=== PATIENT | female | born 1960 | race Caucasian/White ===

== ENCOUNTER → 2017-07-01 13:54 | Outpatient (CLI) | payer BC, SELFPAY ==
[2017-07-01 14:23] LABS: Basophils # 0.1 K/mm3 (0-0.2); Basophils % 1.1 % (0.1-2.0); Eosinophils # 0.4 K/mm3 (0.0-0.4); Eosinophils % 7.5 % (0.1-12.0); Hematocrit 38.7 % (37.0-47.0); Hemoglobin 12.9 g/dL (12.2-16.2); Lymphocytes # 2.1 K/mm3 (0.7-4.5); Lymphocytes % 40.8 K/mm3 (10-50); Mean Corpuscular HGB Conc 33.5 g/dL (31.8-35.4); Mean Corpuscular Hemoglobin 31.4 pg (27.0-31.2); Mean Corpuscular Volume 93.8 fl (81-99); Monocytes # 0.3 K/mm3 (0.1-1.0); Monocytes % 4.9 % (1.7-9.3); Neutrophils # 2.4 K/mm3 (1.8-7.8); Neutrophils % 45.6 % (37.0-80.0); Platelet Count 302 K/mm3 (142-424); Red Blood Count 4.13 M/mm3 (4.20-5.40); Red Cell Distribution Width 12.4 % (11.5-17.5); White Blood Count 5.2 K/mm3 (4.8-10.8)
[2017-07-01 16:41] LABS: Alanine Aminotransferase 19 U/L (12-78); Albumin Level 3.9 gm/dL (3.4-5.0); Albumin/Globulin Ratio 1.2 (1.1-1.8); Alkaline Phosphatase 99 U/L (46-116); Anion Gap 13.2 mEq/L (5-15); Aspartate Amino Transferase 20 U/L (15-37); Bilirubin,Total 0.2 mg/dL (0.2-1.0); Blood Urea Nitrogen 12 mg/dL (7-18); Calcium 9.8 mg/dL (8.5-10.1); Carbon Dioxide 29 mmol/L (21.0-32.0); Chloride 106 mmol/L (98-107); Chol/HDL Ratio 3.1 (1-3.5); Cholesterol 220 mg/dL (140-200); Creatinine,Serum 0.64 mg/dL (0.55-1.02); Estimated Glomerular Filt Rate 97 ml/min (>60); GFR (African American) 117 ML/MIN (>60); Globulin 3.2 gm/dl (1.3-3.2); Glucose 87 mg/dL (74-106); HDL Cholesterol 70 mg/dL (29-89); LDL Cholesterol 141 mg/dL (0-130); Potassium 4.2 mmoL/L (3.5-5.1); Sodium 144 mmol/L (136-145); T4 (Thyroxine) 9.3 ug/dl (4.7-13.3); Thyroid Stimulating Hormone 1.03 uIU/ml (0.358-3.740); Total Protein,Serum 7.1 gm/dL (6.4-8.2); Triglycerides 46 mg/dL (30-200); VLDL Cholesterol 9 mg/dL (0-40)
== END ==
PROVIDERS: Visit Provider Family Medicine
DX: F41.8 Other specified anxiety disorders (principal); L65.9 Nonscarring hair loss, unspecified
CPT/HCPCS: 36415; 80053; 80061; 84436; 84443; 85025

== ENCOUNTER → 2017-09-29 14:38 | Outpatient (CLI) | payer BC, SELFPAY ==
--- NOTE | 2017-09-29 | NVE_ITS ---
Venous Exam Indications: 729.5 Pain in limb. IMPRESSIONS 1. There is no evidence of significant Reflux. 2. Acute deep vein thrombosis involving the right posterior tib History: Right lower extremity pain. Risk factors: Current tobacco use. Patient has a history of DVT in LLE 2014. Right lower extremity venous duplex evaluation. Doppler flow study including spectral analysis, color and bliss scale imaging. Location: Vascular laboratory. Patient status: Outpatient. CRITICAL FINDINGS - Reported to: ANALI Sierra - Read back and verified. - 09/29/17 - 15:45 - DVT in PTV RLE Tables: Venous flow and imaging: + + + + Location Overall Flow properties + + + + Right common femoral Patent Normal phasicity; spontaneous; normal augmentation; compressible + + + + Right saphenofemoral Patent Compressible junction + + + + Right profunda femoral Patent Compressible + + + + Right femoral Patent Normal phasicity; spontaneous; normal augmentation; compressible + + + + Right greater saphenous Patent Normal phasicity; spontaneous; normal augmentation; compressible + + + + Right popliteal Patent Normal phasicity; spontaneous; normal augmentation; compressible + + + + Right posterior tibial Totally occluded Noncompressible + + + + Right peroneal Patent Compressible + + + + Right gastrocnemius Patent Compressible + + + + Right soleal Patent Compressible + + + + (Report amended ) Electronically signed by: German Cruz [id number]
== END ==
PROVIDERS: PCP Family Medicine; Visit Provider Family Medicine
DX: M79.661 Pain in right lower leg (principal)
CPT/HCPCS: 93971

== ENCOUNTER → 2019-03-19 16:30 | Outpatient (CLI) | payer BC, SELFPAY ==
[2019-03-19 17:40] LABS: Alanine Aminotransferase 25 U/L (12-78); Albumin Level 3.9 gm/dL (3.4-5.0); Albumin/Globulin Ratio 1.3 (1.1-1.8); Alkaline Phosphatase 82 U/L (46-116); Anion Gap 10.2 mEq/L (5-15); Aspartate Amino Transferase 19 U/L (15-37); Bilirubin,Total 0.3 mg/dL (0.2-1.0); Blood Urea Nitrogen 16 mg/dL (7-18); Calcium 9.2 mg/dL (8.5-10.1); Carbon Dioxide 30 mmol/L (21.0-32.0); Chloride 104 mmol/L (98-107); Chol/HDL Ratio 2.8 (1-3.5); Cholesterol 212 mg/dL (140-200); Estimated Glomerular Filt Rate 74 ml/min (>60); GFR (African American) 90 ML/MIN (>60); Glucose 88 mg/dL (74-106); HDL Cholesterol 75 mg/dL (29-89); LDL Cholesterol 127 mg/dL (0-130); Potassium 4.2 mmoL/L (3.5-5.1); Sodium 140 mmol/L (136-145); Thyroid Stimulating Hormone 1.12 uIU/ml (0.358-3.740); Total Protein,Serum 6.9 gm/dL (6.4-8.2); Triglycerides 51 mg/dL (30-200); VLDL Cholesterol 10 mg/dL (0-40)
== END ==
PROVIDERS: Visit Provider Family Medicine
DX: Z79.899 Other long term (current) drug therapy (principal); F41.8 Other specified anxiety disorders
CPT/HCPCS: 36415; 80053; 80061; 84443

== ENCOUNTER → 2020-06-10 12:19 | Outpatient (CLI) | payer BC, SELFPAY ==
[2020-06-10 13:05] LABS: Chloride 103 mmol/L (98-107); Potassium 3.9 mmoL/L (3.5-5.1); Sodium 137 mmol/L (136-145)
[2020-06-10 13:07] LABS: Alanine Aminotransferase 48 U/L (12-78); Aspartate Amino Transferase 45 U/L (14-36); Blood Urea Nitrogen 22 mg/dl (7-17); Estimated Glomerular Filt Rate 86 ml/min (>60); GFR (African American) 104 ML/MIN (>60)
[2020-06-10 13:08] LABS: Albumin Level 4.1 g/dl (3.5-5.0); Albumin/Globulin Ratio 1.6 (1.1-1.8); Alkaline Phosphatase 91 U/L (38-126); Anion Gap 12.9 mEq/L (5-15); Bilirubin,Total 0.3 mg/dl (0.2-1.3); Calcium 9.4 mg/dl (8.4-10.2); Carbon Dioxide 25 mmol/L (22.0-30.0); Cholesterol 203 mg/dl (140-200); Globulin 2.5 g/dL (1.3-3.2); Glucose 107 mg/dl (74-100); HDL Cholesterol 68 mg/dl (40-60); Total Protein,Serum 6.6 g/dl (6.3-8.2); Triglycerides 91 mg/dl (30-150); VLDL Cholesterol 18 mg/dL (0-40)
[2020-06-10 13:39] LABS: Thyroid Stimulating Hormone 1.72 uIU/mL (0.465-4.68)
[2020-06-10 14:17] LABS: Coronavirus 19 IgG Antibody Positive (Negative); Coronavirus 19 IgM Antibody Negative (Negative)
== END ==
PROVIDERS: Family Medicine; Visit Provider Internal Medicine Gastroenterology
DX: Z01.812 Encounter for preprocedural laboratory examination (principal); Z20.822 Contact with and (suspected) exposure to COVID-19; Z12.11 Encounter for screening for malignant neoplasm of colon; F41.8 Other specified anxiety disorders; R63.5 Abnormal weight gain
CPT/HCPCS: 36415; 80053; 80061; 84443; 86328

== ENCOUNTER 2020-06-12 10:27 | Day surgery (SDC) | payer BC, SELFPAY ==
[2020-06-07 13:03] VITALS: BMI 29.1
[2020-06-12] VITALS (8 sets, daily range): BP systolic 108–131; BP diastolic 68–83; PULSE 59–80; RESP 12–20; TEMP 36.3–36.6; O2SAT 94–100
--- NOTE | 2020-06-12 12:35 | HMH.ANESCL ---
[facility] Anesthesia Checklist - Patient Identification Patient Identification: Arm Band - Structural Data Admitted From: Home Planned Operative Procedure/s: Colonoscopy Consent for Planned Operative Procedure(s) Verified: Yes - NPO Status Verified Time NPO: 00:00 - Airway Assessment Dentition: Good Dentition - Neurological Assessment Level of Consciousness: Awake, Alert Hx Seizures: No Numbness or tingling in extremities: No - Anesthesia Plan Anesthesia Risk discussed: Yes Anesthesia Plan: Verified ASA Class: I Anesthesia Type: MAC [facility] History I have reviewed the patient's past medical history: Yes Medical History: Reports:: Anxiety, Cancer (skin) Denies:: Diabetes Mellitus Type 1, Diabetes Mellitus Type 2, Internal Pacemaker, MRSA, Seizures *Have you ever received a pneumonia vaccine?: No *Have you received a flu vaccine this season?: Yes Anesthesia experience/problems:: None Other Surgeries: Yes: Colonoscopy. No: Pacemaker Amputation: No - *Social History Last grade of school completed: High school graduate Smoking Status: Former smoker Tobacco Type: cigarettes Smoking End Date: 02/2019 Alcohol Intake: current Alcohol Intake Frequency:: a few times a month Substance Use Type: denies use *Occupational Status:: employed Housing: house Household Members: spouse *Travel in the last 8 weeks: None Family Hx:: No significant family history
--- NOTE | 2020-06-12 12:57 | HMH.PROC ---
[facility] Procedure Note Procedure Note:: Colonoscopy Procedure Report: Colonoscopy Endoscopist: Ruperto Hart II, MD Referring physician: Geronimo Lange M.D./Keegan Greenberg MD Date of Procedure: June 12, 2020 Equipment: Olympus 190 variable stiffness pediatric colonoscope Sedation: MAC sedation Indication: Mrs. Norman is a 59-year-old female who is here for screening/surveillance colonoscopy. The patient did have a colonoscopy in May 2014 and had significant tortuosity and mild sigmoid diverticulosis. She did not have adenomatous polyps. She does have some chronic constipation. She reports no rectal bleeding, abdominal pain, weight loss or change in bowel habits. She reports no family history of colon cancer. Procedure: Prior to the procedure, a history and physical exam was performed, and patient's medications and allergies were reviewed. The risks, benefits and alternatives of the sedation and procedure were discussed with the patient. All questions were answered and informed consent was obtained. The patient was brought to the procedure room. Patient identification and proposed procedure were verified by the physician and the nurse. The patient was placed in a left lateral decubitus position and the scope was passed under direct vision. Throughout the procedure, the patient's blood pressure, pulse, and oxygen saturations were monitored continuously. The colonoscopy was accomplished without difficulty. The patient tolerated the procedure well. Findings: On digital rectal examination there was normal rectal tone. There were no external hemorrhoids. The colonoscope was introduced through the anal canal to the rectum and advanced to the cecum. The ileocecal valve and appendiceal orifice were identified. The scope was advanced a short distance into the ileum which appeared grossly normal. The scope was then withdrawn into the colon. The cecum, ascending and transverse colon and mucosa were grossly normal. There were scattered diverticuli throughout the descending and sigmoid colon (LEFT colon). The rectum itself was normal. Upon retroflexion within the rectum there were grade 1 internal hemorrhoids. The preparation was excellent throughout with [place] Preparation Score of 9. The cecal time was 12 minutes. Impression: 1. Left-sided diverticulosis 2. Grade 1 internal hemorrhoids Plan: The patient will not require screening/surveillance colonoscopy again for 10 years by ACS guidelines. I would encourage a fiber bowel regimen on a long-term daily maintenance basis.
--- NOTE | 2020-06-12 13:01 | P.PN_ITS ---
[facility] Anesthesia Record Part I Intake, IV Amount: 600 Estimated blood loss (mL): 0 Urine output (mL): 0 Blood Pressure: 110/68 SaO2: 94 Pulse Rate: 79 Respiratory Rate: 12 Temperature: 97.3 F Patient is:: Drowsy Stable to PACU at:: 12:59
--- NOTE | 2020-06-12 14:47 | HMH.ANESII ---
[facility] Anesthesia Record Part II Discharge Time: 13:53 Destination: Surgical Day Care (OP Surgery) PACU nurse assessment reviewed?: Yes Patient Condition:: Good Anesthesia Complications:: None Swallowing reflex intact?: Yes Cyanosis?: No Blood Pressure: 131/83 Pulse Rate: 59 Temperature: 97.3 F Mental Status: Alert & Oriented Pain level:: 0 Nausea and/or vomitting:: None Intake, IV Amount: 600
== END 2020-06-12 13:55 | disposition home or self-care (01) ==
LOC: OUTP 10:30
PROVIDERS: PCP Family Medicine; Visit Provider Internal Medicine Gastroenterology
PROC: 0DJD8ZZ Inspection of Lower Intestinal Tract, Via Natural or Artificial Opening Endoscopic (ICD-10-PCS; CPT 45378; principal; 2020-06-12 11:30)
DX: Z12.11 Encounter for screening for malignant neoplasm of colon (principal); Z87.19 Personal history of other diseases of the digestive system; K57.30 Diverticulosis of large intestine without perforation or abscess without bleeding; K64.0 First degree hemorrhoids; F41.9 Anxiety disorder, unspecified; Z85.828 Personal history of other malignant neoplasm of skin; Z87.891 Personal history of nicotine dependence; Z79.899 Other long term (current) drug therapy
CPT/HCPCS: 45378

== ENCOUNTER → 2020-08-21 09:27 | Outpatient (CLI) | payer BC, SELFPAY ==
--- NOTE | 2020-08-21 | CA_ITS ---
APPROVED REPORT EXAM: Comprehensive 2D, Doppler, and color-flow Echocardiogram Show Host: Luci Chavez, EULA, RVS Ht: 5 ft 5 in Wt: 175lbs BSA: 1.87 BP: 131/83 mmHg Indications: Chest Pressure, Shortness of Breath, Palpitations 2D Dimensions IVSd 0.92 cm LVEF (Visual) 53.20 % PWd 0.95 cm LVDd 4.75 cm LVDs 3.45 cm Left Atrium 3.43 cm LVOT 1.86 cm (M/F) 1.5-2.5 M-Mode Dimensions LA Diam 3.63 cm (1.9-4.0) Ao Diam 3.03 cm (2.0-3.7) EPSs 0.37 cm TAPSE 1.58 (<1.7) LV Diastology E Decel Time 210.00 (160-240 msec) E/A Ratio 1.22 MED E' 11.30 (< 7 cm/sec) MED A' 9.10 cm/s E'/MED E' Ratio 6.09 (>14) LAT E' 9.60 (<10 cm/sec) LAT A' 7.60 cm/s E/LAT E' Ratio 7.17 (>14) Aortic Valve LVOT Max 105.00 (70-110 cm/s) LVOT VTI 22.22 cm AoV Peak Vlad. 138.00 (50-130 cm/s) AO Peak GR. 7.70 mmHg AO Mean GR. 3.90 (<5 mmHg) AO VTI 27.68 (18-25 cm) ARLINE (VTI) 2.18 (2.5-4.5 cm2) Mitral Valve MV A Velocity 56.00 (40-130 cm/s) E/A Ratio 1.22 MV Decel. Time 210.00 (160-240 ms) Pulmonary Valve PV Peak Velocity 84.00 (50-150 cm/s) Tricuspid Valve TR P. Velocity 174.00 cm/s RAP Estimate 10.00 mmHg RVSP 22.20 mmHg Left Ventricle Left atrium is normal size, left ventricle is normal size, there is mild concentric left ventricular hypertrophy, visually estimated ejection fraction 55% with no regional wall motion abnormality, diastolic parameters are within normal range. Right Ventricle Right atrium and right ventricle are normal size and contractility. Aortic Valve Aortic valve is minimally thickened and fibrosed, there is no aortic stenosis or aortic insufficiency. Mitral Valve Mitral valve is grossly normal, there is trace mitral regurgitation. Tricuspid Valve Tricuspid valve is grossly normal, there is trace tricuspid regurgitation, tricuspid regurgitation jet velocity is inadequate for calculation of the right ventricular systolic pressure. Pulmonic Valve Pulmonic valve is poorly visualized. Great Vessels Aortic root is normal size. Pericardium No significant pericardial effusion noted. Conclusion 1. Normal left ventricular size, preserved left ventricular systolic function, visually estimated ejection fraction 55% with no regional wall motion abnormality, diastolic parameters are within normal range. 2. Trace mitral and tricuspid regurgitation. 3. No significant pericardial effusion noted. Electronically signed by : Tramaine Alberts, 08/21/2020 12:43:31
--- NOTE | 2020-08-21 10:18 | XR_ITS ---
PROCEDURE: XR CHEST 2V CLINICAL HISTORY: PALPITATIONS Shortness of air COMPARISON: No exams were available for comparison FINDINGS: The cardiomediastinal silhouette and pulmonary vascularity are within normal limits. Calcified granuloma is present in the right upper lobe. Minimal fibronodular changes right apex. No lobar consolidation or collapse. There is an old right 8th and 9th rib fracture. IMPRESSION: No acute findings. Dictated by: German Cruz MD 08/21/2020 12:32 German Cruz MD in OV 08/21/2020 12:32
== END ==
PROVIDERS: PCP Family Medicine; Visit Provider Family Medicine
DX: R00.2 Palpitations (principal)
CPT/HCPCS: 71046; 93225; 93226; 93306

== ENCOUNTER → 2021-08-30 16:04 | Outpatient (CLI) | payer BC, SELFPAY ==
--- NOTE | 2021-08-30 | XR_ITS ---
PROCEDURE INFORMATION: Exam: XR Chest Exam date and time: 08/30/2021 4:19 PM Age: 60 years old Clinical indication: Pain; Angina and cough and shortness of breath; Other: Chest wall when coughing; Patient HX: SOA, tightness, cough w cp x 10 days; Additional info: Smoker, shielded TECHNIQUE: Imaging protocol: Radiologic exam of the chest. Views: 1 view. COMPARISON: CR XR CHEST 2V 08/21/2020 10:28 AM FINDINGS: Lungs: No focal pneumonia or pneumothorax. Granulomatous density noted within the right upper lobe. Bilateral hyperinflation is present. Pleural spaces: There are no pleural effusions present. Heart/Mediastinum: Unremarkable. No cardiomegaly. Bones/joints: Unremarkable. IMPRESSION: 1. No focal pneumonia or pneumothorax. 2. Bilateral hyperinflation is present.
== END ==
PROVIDERS: PCP Family Medicine; Visit Provider Physician Assistant
DX: Z20.822 Contact with and (suspected) exposure to COVID-19 (principal)
CPT/HCPCS: 71045; C9803; U0003; U0005

== ENCOUNTER → 2021-09-17 14:54 | Outpatient (CLI) | payer BC, SELFPAY ==
[2021-09-17 15:40] VITALS: PULSE 70
[2021-09-17 15:45] VITALS: PULSE 68
== END ==
PROVIDERS: PCP Family Medicine; Visit Provider Physician Assistant
DX: R05.9 Cough, unspecified (principal)
CPT/HCPCS: 94060; 94640; 94727; 94729

== ENCOUNTER → 2022-03-11 09:06 | Outpatient (CLI) | payer BC, SELFPAY ==
[2022-03-11 10:02] LABS: Chloride 103 mmol/L (98-107); Potassium 4.8 mmoL/L (3.5-5.1); Sodium 139 mmol/L (136-145)
[2022-03-11 10:04] LABS: Blood Urea Nitrogen 18 mg/dl (7-17); Estimated Glomerular Filt Rate 86 ml/min (>60); GFR (African American) 104 ML/MIN (>60)
[2022-03-11 10:05] LABS: Alanine Aminotransferase 26 U/L (12-78); Albumin Level 4.3 g/dl (3.5-5.0); Albumin/Globulin Ratio 1.6 (1.1-1.8); Alkaline Phosphatase 86 U/L (38-126); Anion Gap 10.8 mEq/L (5-15); Aspartate Amino Transferase 29 U/L (14-36); Bilirubin,Total 0.3 mg/dl (0.2-1.3); Calcium 9.3 mg/dl (8.4-10.2); Carbon Dioxide 30 mmol/L (22.0-30.0); Cholesterol 230 mg/dl (140-200); Globulin 2.7 g/dL (1.3-3.2); Glucose 95 mg/dl (74-100); Triglycerides 68 mg/dl (30-150); VLDL Cholesterol 14 mg/dL (0-40)
[2022-03-11 10:06] LABS: Chol/HDL Ratio 3.1 (1-3.5); HDL Cholesterol 74 mg/dl (40-60)
== END ==
PROVIDERS: PCP Family Medicine; Visit Provider Family Medicine
DX: E78.5 Hyperlipidemia, unspecified (principal); F41.8 Other specified anxiety disorders; K21.9 Gastro-esophageal reflux disease without esophagitis
CPT/HCPCS: 36415; 80053; 80061

== ENCOUNTER → 2022-10-07 11:33 | Outpatient (CLI) | payer BC, SELFPAY ==
[2022-10-07 11:48] LABS: Adenovirus,PCR Not Detected (NotDetected); Bordetella Pertussis Not Detected (NotDetected); Chlamydophila Pneumoniae, PCR Not Detected (NotDetected); Coronavirus 19, PCR Not Detected (NotDetected); Coronavirus 229E Not Detected (NotDetected); Coronavirus NL63 Not Detected (NotDetected); Coronavirus OC43 Not Detected (NotDetected); Coronovirus HKU1,PCR Not Detected (NotDetected); Human Metapneumovirus Not Detected (NotDetected); Influenza A, PCR Not Detected (NotDetected); Influenza AH1, 2009 Not Detected (NotDetected); Influenza AH1, PCR Not Detected (NotDetected); Influenza AH3,PCR Not Detected (NotDetected); Influenza B, PCR Not Detected (NotDetected); Mycoplasma Pneumoniae, PCR Not Detected (NotDetected); Parainfluenza 1, PCR Not Detected (NotDetected); Parainfluenza 2, PCR Not Detected (NotDetected); Parainfluenza 3, PCR Not Detected (NotDetected); Respiratory Syncytial Virus Not Detected (NotDetected); Rhinovirus/Enterovirus Not Detected (NotDetected)
[2022-10-07 13:54] LABS: Parainfluenza 4, PCR Detected (NotDetected)
== END ==
PROVIDERS: PCP Family Medicine; Visit Provider Nurse Practitioner Family
DX: J09.X2 Influenza due to identified novel influenza A virus with other respiratory manifestations (principal); J20.4 Acute bronchitis due to parainfluenza virus
CPT/HCPCS: 87581; 87632; 87798

== ENCOUNTER 2023-12-15 07:18 | Outpatient (CLI) | payer BC, SELFPAY ==
--- NOTE | 2023-12-15 07:23 | US_ITS ---
PROCEDURE INFORMATION: Exam: US Abdomen, Limited; Right Upper Quadrant Exam date and time: 12/15/2023 7:20 AM Age: 63 years old Clinical indication: Abdominal pain; Acute; Additional info: Ruq pain TECHNIQUE: Imaging protocol: Real time ultrasound of the abdomen with image documentation. Limited exam focused on the right upper quadrant. COMPARISON: No relevant prior studies available. FINDINGS: Liver: Normal. No masses. Gallbladder: Gallstones in the gallbladder. Gallbladder wall 3.7 -6.2 mm. Findings may reflect acute cholecystitis. Biliary ducts: Common bile duct 3.7 -4.1 mm Pancreas: Visualized pancreas is unremarkable. Right kidney: Right kidney 11.2 cm. Right renal cortex 5.5 mm. No hydronephrosis Portal venous: Hepatopetal flow in the portal vein IMPRESSION: Gallstones in the gallbladder. Gallbladder wall 3.7 -6.2 mm. Findings may reflect acute cholecystitis.
== END 2023-12-15 23:59 | disposition home or self-care (01) ==
LOC: RAD 07:18
PROVIDERS: PCP Family Medicine; Visit Provider Family Medicine
DX: R10.11 Right upper quadrant pain (principal)
CPT/HCPCS: 76705

== ENCOUNTER 2024-09-23 08:40 | Outpatient (CLI) | payer BC, SELFPAY ==
--- OUTSIDE RECORDS SUMMARY | 2020-09-25 12:01 | XMS_ITS | Encounter Summary ---
Author Organization [facility] Address [address] [place] [address] Care Team Providers Care Payroll Services Analyst Name Role Phone Silvino Greenberg MD Primary Care Provider Reason for Visit * Diagnostic Imaging (Emergency) - Closed Specialty Diagnoses / Procedures Referred By Contact Referred To Contact Obstetrics and Gynecology Diagnoses Osteoporosis screening Procedures DEXA Bone Density Axial Donna Monroe MD [address] [facility] [address] [place] [address] Phone: tel: fax: [facility] [address] [place] [address] Phone: tel: fax: Referral ID Status Reason Start Date Expiration Date Visits Re quested Visits Authorized [id number] Closed 09/25/2020 09/25/2021 1 1 Encounter Details Date Type Department Care Team (Late st Contact Info) Description 09/25/2020 12:01 PM EDT Hospital Encounter [facility] [address] [place] [address] Social History Tobacco Use Types Packs/Day Years Used Date Smoking Tobacco: Former Cigarettes 1 30 Electronic Cigarette Smokeless Tobacco: Never Alcohol Use Standard Drinks/Week Comments Yes 0 (1 standard drink = 0.6 oz pur e alcohol) social Abuse Screen Answer Date Recorded Feels Unsafe at Home or Work/School no 11/30/2023 Feels Threatened by Someone no 10/0 07/2023 Does Anyone Try to Keep You From Having Contact with Others or Doing Things Outside Your Home? no 11/30/2023 Physical Signs of Abuse Present no 11/30/2023 Comments No Sex and Gender Information Value Date Recorded Sex Assigned at Not on file Legal Sex Female 12:14 PM EDT Gender Identity Not on file Sexual Orientation Not on file documented as of this encounter Plan of Treatment Not on file documented as of this encounter Procedures Procedure Name Priority Date/Time Associated Diagnosis Comments DEXA BONE DENSITY AXIAL STAT 09/25/2020 12:14 PM EDT Osteoporosis screening documented in this encounter Results * DEXA Bone Density Axial (09/25/2020 12:14 PM EDT) Anatomical Region Laterality Modality Wrist, Hip, L-spine N/A Bone Density Narrative 09/25/2020 5:44 PM EDT Bone Density Scan Findings Consistent with Osteoporosis Would recommend Calcium , Vitamin D, Weight Bearing Exercises and Medical Therapy Follow Up Repeat Study in 2 Years Donna Monroe MD us Donna Monroe MD IMG DXA ORDERABLES Final Result documented in this encounter Visit Diagnoses Not on filedocumented in this encounter Care Teams Payroll Services Analyst Relationship Specialty Start Date End Date Silvino Greenberg MD [facility] [address] [facility] [address] [place] [address] PCP - General Family Medicine 09/25/20 documented as of this encounter
--- OUTSIDE RECORDS SUMMARY | 2023-05-06 12:05 | XMS_ITS ---
Author Organization [facility] Address [address] [id number] Care Team Providers Care Chiller Hand Name Role Phone Erich Greenberg Primary Care Provider Allergies Allergen (clinical drug ingredient) Drug/Non Drug Allergy documented on EMR Reaction Allergy Type Onset Date Status vortioxetine Trintellix nightmares Drug Allergy Ac tive Results Component Value Reference Range Notes Influenza Screen (in house) Reviewed date:05/07/2023 10:08:52 AM Interpretation:neg Performing Lab: Notes/Report: neg results neg CBC Fingerstick (in house) Reviewed date:05/07/2023 10:09:01 AM Interpretation: Performing Lab: Notes/Report: wbc 4.0 3.5 - 10 lym 34.3 15 - 50 mid 6.9 2 - 15 gran 58.8 35 - 80 rbc 4.18 3.5 - 5.5 hgb 13.0 11.5 - 16.5 hct 37.8 35 - 55 mcv 90.4 75 - 100 mch 31.1 25 - 35 mchc 34.4 31 - 38 plat 148 100 - 400 Covid test (in house) Reviewed date:05/07/2023 10:09:11 AM Interpretation:pos Performing Lab: Notes/Report: pos Result: pos REASON FOR VISIT vomitting, sore throat, headache, congestion, sob Medications Medication SIG (Take, Route, Frequency, Duration) Notes Start Date End Date Status Albuterol Sulfate HFA 108 (9 0 Base) MCG/ACT 2 inhalations Inhalation four times daily and q2h prn; Duration: 30 days 10/07/2022 Active traZODone HCl 150 MG 1 tab(s) orally onc e a day (at bedtime) Active methylPREDNISolone 4 MG as directed Orally 024 Active ZyrTEC Allergy 10 MG 1 tab(s) orally onc e a day Active Omeprazole 20 MG 1 cap(s) orally once a day Active Vital Signs Blood pressure systolic 120 mm Hg 05/06/19 24 Blood pressure diastolic 80 mm Hg 024 Heart Rate 80 /min 05/06/2023 Height 66 in 05/06/2023 Weight 177.8 lbs 05/06/2023 BMI 28.69 kg/m2 05/06/2023 Encounters Encounter Location Date Provider Diagnosis [facility] [address] [place] [address] [address] [place], [place] [id number] 05/06/2023 Erich Greenberg COVID-19 U07.1 Assessments Encounter Date Diagnosis (ICD Code) Assessment Notes Treatment Notes Treatment Clinical Notes Section Notes 05/06/2023 COVID-19 (ICD-10 - U07.1) Plan Of Treatment Medication Medication Name Sig Start Date Stop Date Notes methylPREDNISolone 4 MG as directed Orally 05/06/2023 Next Appt Details Follow Up: prn, Reason: Provider Name:Erich Bashir, 09/23/2024 03:30:00 PM, [facility] [address], [address], [place], [place], [id number], Progress Notes * Elena MENJIVARDOB:1960 ( 63 yo F)Acc No.[id number]:05/06/2023 Progress Notes Patient: Elena VIEIRA Provider: Erich Greenberg M.D. :1960 A ge:62 Y S ex:Female Date:05/06/2023 Address:[address] [place] [address], , [place]-[id number] Subjective: * Chief Complaints: * 1 . Vomitting, sore throat, headache, congestion, sob. * HPI: E NT/respiratory: The pt states she started on Friday with vomiting which resolved within 24 hours. On Friday she developed a sore throat, some productive cough and head ache. Pt denies any fever. Today she is actually feeling a little better. * ROS: A LLERGY: no C ough. n o R unny nose. D ERMATOLOGY: no R sierra. n o H gordon. U ROLOGY: no D ifficulty urinating. n o B lood in urine. 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 * Surgical History: t ubal ligation 1980, appendectomy 1980, C-scope/ [place]/ polyps 2014. * Hospitalization/Major Diagno stic Procedure: s ee above , [facility] ER-vomiting 09/04, [facility]- outpatient 5 days a week 12/11 to 01/20/18. * Family History: F ather: 65 yrs, alcohol abuse, coronary artery disease. M other: 63 yrs, renal failure, breast cancer and stroke. 2 brother(s) , 1 sister(s) . 2 daughter(s) . . Sister with skin cancer. Brother with pacemaker. 2 brothers and 1 sister with HBP. * Social History: C URRENT TOBACCO USE S moking Status: Patient does NOT smoke. C affeine: yes, frequency:coffee, pop and tea, qd. Home smoke detector use: yes. Marital Status: Single. Occupation: [employer]. Past smoking status: no. Alcohol: Yes, Type: , Frequency: ,Years: , Determination:, rare. Sexually active: yes. * Medications: T aking Albuterol Sulfate HFA 108 (90 Base) MCG/ACT Aerosol Solution 2 inhalations Inhalation four times daily and q2h prn , Taking traZODone HCl 150 MG Tablet 1 tab(s) orally once a day (at bedtime) , Taking Omeprazole 20 MG Capsule Delayed Release 1 cap(s) orally once a day , Taking ZyrTEC Allergy 10 MG Tablet 1 tab(s) orally once a day , Discontinued Zithromax Z-Frankie 250 MG Tablet 2 pills first day then one daily for 4 days orally as directed , Discontinued dexAMETHasone 4 MG Tablet 1 tablet Orally every 12 hrs , Discontinued Benzonatate 200 MG Capsule 1 capsule Orally Three times a day prn , Discontinued Promethazine-DM 6.25-15 MG/5ML Syrup 5 ml as needed Orally every 6 hrs , Discontinued Albuterol Sulfate HFA 108 (90 Base) MCG/ACT Aerosol Solution 1-2 puff(s) inhaled every 6 hours, prn , Discontinued Ciprofloxacin HCl 500 MG Tablet 1 tab(s) orally every 12 hours , Medication List reviewed and reconciled with the patient * Allergies: T rintellix: nightmares - Side Effects. Objective: * Vitals: W t:177.8, Temp:98.7, BP:120/80, HR:80, Nurse:VICK, Ht: 66, BMI:28.69. * Examination: E NT/Respiratory: General Appearance: N AD. E yes: P ERRLA, sclera clear. E ars: a uditory canals normal bilaterally, TM's WNL. N ose : M oderate congestion. O ral cavity : mild erythema of throat. N aurora : n o cervical lymphadenopathy. Heart : R RR, normal S1 S2, no murmurs. L ungs: c lear to auscultation bilaterally. Assessment: * Assessment: 1. [facility]-19 - U07.1 (Primary) Plan: * Treatment: Value Reference Range r esults neg * Libertad Mar 05/06/2023 4: 39:44 PM > , Provider reviewed results while patient in office. ?LAB: CBC Fingerstick (in house) (Collection Date & Time - 05/06/2023)* Value Reference Range w bc 4.0 3.5 - 10 * l ym 34.3 15 - 50 * m id 6.9 2 - 15 * g ran 58.8 35 - 80 * r bc 4.18 3.5 - 5.5 * h gb 13.0 11.5 - 16.5 * h ct 37.8 35 - 55 * m cv 90.4 75 - 100 * m ch 31.1 25 - 35 * m chc 34.4 31 - 38 * p lat 148 100 - 400 * Libertad Mar 05/06/2023 4: 17:14 PM > , Provider reviewed results while patient in office. ?LAB: Covid test (in house) (Collection Date & Time - 05/06/2023)?pos* Value Reference Range R esult: pos * Libertad Mar 05/06/2023 4: 40:05 PM > , Provider reviewed results while patient in office. * Procedure Codes: 3 6416 CAPILLARY BLOOD DRAW, 06643 CBC WITH AUTO DIFF, 22008 Flu Test- Nasal Swab, Modifiers: QW , 55304 COVID TEST IN HOUSE, Modifiers: QW * Follow Up: p rn * Images: Billing Information: * Visit Code: 08776 Office Visit, Est Pt., Level 3. * Procedure Codes: 11668 CAPILLARY BLOOD DRAW. 04731 CBC WITH AUTO DIFF. 57336 Flu Test- Nasal Swab. Modifiers: QW 72273 COVID TEST IN HOUSE. Modifiers: QW * Electronic signature of Erich Greenberg MD on 09/23/2024 at 08:42 AM EDT Sign off status: Pending * Provider: Erich Greenberg M.D. Date: 0 05/06/2023 Generated for Harrieti ng/Fajujug/eTransmitting on: 0 09/23/2024 08:42 AM EDT History and Physical Notes * HPI (History of Present Illness) Category Sub-Category Detail Notes Category Not es ENT/respiratory Today she is actually feeling a little better. Examination Category Sub-Category Detail Notes Category Not es ENT/Respiratory Oral cavity : mild erythema of throat Ears: auditory canals norm al bilaterally, TM's WNL Neck : no cervical lymphade nopathy Heart : RRR, normal S1 S2, n o murmurs Lungs: clear to auscultatio n bilaterally General Appearance: NAD Nose : Moderate congestion Eyes: PERRLA, sclera clear
--- OUTSIDE RECORDS SUMMARY | 2023-12-09 11:30 | XMS_ITS ---
Author Organization [facility] Address [address] [id number] Care Team Providers Care Drywall Applicator Name Role Phone Erich Greenberg Primary Care Provider Allergies Allergen (clinical drug ingredient) Drug/Non Drug Allergy documented on EMR Reaction Allergy Type Onset Date Status vortioxetine Trintellix nightmares Drug Allergy Ac tive Results Component Value Reference Range Notes Ultrasound : Right [place] drant Reviewed date:12/16/2023 09:10:13 AM Interpretation:call report- gallstones and gallbladder wall thickening Performing Lab: Notes/Report: call report- gallstones and gallbladder wall thickening REASON FOR VISIT ER visit; severe stomach pains Medications Medication SIG (Take, Route, Frequency, Duration) Notes Start Date End Date Status EQ Allergy Relief (Cetirizine) 10 MG Take 1 tablet by mouth once daily; Duration: 90 Active Albuterol Sulfate HFA 108 (90 Base) MCG/ACT 2 inhalations Inhalation four times daily and q2h prn; Duration: 30 days 10/07/2022 Active Omeprazole 20 MG 1 cap(s) orally once a day; Duration: 90 days Active traZODone HCl 150 MG TAKE 1 TABLET BY MO UT ONCE DAILY AT BEDTIME; Duration: 90 Active Zepbound 7.5 MG/0.5ML 0.5 mL Subcutaneou s; Duration: 30 day(s) Active Vital Signs Blood pressure systolic 112 mm Hg 12/09/19 24 Blood pressure diastolic 72 mm Hg 024 Heart Rate 73 /min 12/09/2023 Height 66 in 12/09/2023 Weight 161 lbs 12/09/2023 BMI 25.98 kg/m2 12/09/2023 Encounters Encounter Location Date Provider Diagnosis [facility] [facility] [address] [facility] [address] [place] [id number] 12/09/2023 Erich Greenberg RUQ abdominal pain R10.11 Assessments Encounter Date Diagnosis (ICD Code) Assessment Notes Treatment Notes Treatment Clinical Notes Section Notes 12/09/2023 RUQ abdominal pain (ICD-10 - R10.11) Plan Of Treatment Next Appt Details Follow Up: via phone to repo rt test results, Reason: Provider Name:Erich Bashir, 09/23/2024 03:30:00 PM, [facility]0 [facility] [address] [facility], [address], [place], [id number], Progress Notes * Elena MENJIVARDOB:1960 ( 63 yo F)Acc No.[id number]:12/09/2023 Progress Notes Patient: Elena VIEIRA Provider: Erich Greenberg M.D. :1960 A ge:63 Y S ex:Female Date:12/09/2023 Address:[address] [place] [address], [id number] Subjective: * Chief Complaints: * 1 . ER visit; severe stomach pains. * HPI: Alisia astroenterology: She presents today for follow-up on ER visit for epigastric abdominal pain. She presented to the emergency room on 11/30/2023 with sudden onset of sharp stabbing epigastric pain that she rated a 10/ 10. No associated symptoms of nausea, vomiting, diarrhea, or fever. Her pain actually subsided and route to the ER and workup in the ER including blood work and CT scan was noncontributory except for findings of a mildly contracted gallbladder. Of note she has been on Zepbound since September and was concerned she may be having a side effect however she has taken 2 additional doses of Zepbound since her episode of pain with no recurrence. * ROS: A LLERGY: no C ough. n o R unny nose. D ERMATOLOGY: no R sierra. n o H gordon. U ROLOGY: no D ifficulty urinating. n o B lood in urine. * Medical History: O P, Depression with anxiety, Recurrent DVT 2014, 2017, Sees Dr. Monroe for PRES[employer] care. * Surgical History: t ubal ligation 1980, appendectomy 1980, C-scope/ Nazario/ polyps 2014. * Hospitalization/Major Diagno stic Procedure: s ee above , [facility] ER-vomiting 09/04, [facility]- outpatient 5 days a week 12/11 to 01/20/18, [facility] ER - Abdominal Pain 11/30/2023. * Family History: F ather: 65 yrs, [...] detector use: yes. Marital Status: Single. 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 Past smoking status: no. Alcohol: Yes, Type: , Frequency: ,Years: , Determination:, rare. Sexually active: yes. * Medications: T aking Zepbound 7.5 MG/0.5ML Solution Auto-injector 0.5 mL Subcutaneous , Taking Albuterol Sulfate HFA 108 (90 Base) MCG/ACT Aerosol Solution 2 inhalations Inhalation four times daily and q2h prn , Taking EQ Allergy Relief (Cetirizine) 10 MG Tablet Take 1 tablet by mouth once daily , Taking Omeprazole 20 MG Capsule Delayed Release 1 cap(s) orally once a day , Taking traZODone HCl 150 MG Tablet TAKE 1 TABLET BY MOUTH ONCE DAILY AT BEDTIME , Discontinued methylPREDNISolone 4 MG Tablet Therapy Pack as directed Orally , Medication List reviewed and reconciled with the patient * Allergies: T rintellix: nightmares - Side Effects. Objective: * Vitals: W t:161, Temp:98.4, BP:112/72, HR:73, Nurse:QUEENIE, Ht: 66, BMI:25.98. * Examination: G eneral Examination: General Appearance: N AD. H EENT: u nremarkable.?Oral cavity: n o lesions, mucosa moist and WNL, no erythema. N aurora: s upple, no lymphadenopathy. C hest: n ormal shape and expansion. H eart: R SR. L ungs: c lear to auscultation. A bdomen: soft, nontender, bowel sounds present, no organomegaly or masses. E xtremities: n o leg edema. Assessment: * Assessment: 1. R UQ abdominal pain - R10.11 (Primary) Plan: * Treatment: * Follow Up: v ia phone to report test results * Images: Billing Information: * Visit Code: 92796 Office Visit, Est Pt., Level 3. * Procedure Codes: * Electronic signature of Erich Greenberg MD on 09/23/2024 at 08:43 AM EDT Sign off status: Pending * Provider: Erich Greenberg M.D. Date: Generated for Song falcon/Soto/eTransmitting on: 0 09/23/2024 08:43 AM EDT History and Physical Notes * Examination Category Sub-Category Detail Notes Category Not es General Examination HEENT: unremarkable Heart: RSR Lungs: clear to auscultatio n Abdomen: soft, nontender, bow el sounds present, no organomegaly or masses Extremities: no leg edema General Appearance: NAD Neck: supple, no lymphaden opathy Oral cavity: no lesions, mucosa m oist and WNL, no erythema Chest: normal shape and exp ansion
--- OUTSIDE RECORDS SUMMARY | 2024-09-23 08:43 | XMS_ITS | Clinical Summary ---
Author Organization [facility] Address [address] [place] [address] Phone [email or web address] Care Team Providers Care Assurance Senior Manager Name Role Phone Silvino Greenberg MD Primary Care Provider Allergies No known active allergies Medications traZODone (DESYREL) 150 MG tablet 12/23/2017 Active acyclovir (ZOVIRAX) 400 MG tablet Take 400 mg by mouth in the morning and 400 mg at noon and 400 mg in the evening. 01/20/2023 Active cetirizine (ZyrTEC) 10 MG tablet Take 10 mg by mouth once daily as needed. Active omeprazole (PriLOSEC) [address] capsule Take 20 mg by mouth 1 (one) time each day. Active Active Problems Problem Noted Date Diagnosed Date Immunization due 01/25/2021 Overview (01/30/2021): Elena Norman is a 60 y.o. female who [facility]2021 for COVID-19 immunization(s) ordered by Health Center provider . See Immunization activity for required documentation. Post-treatment monitoring done per protocol. Patient observed for adverse reactions for 15 minutes. Adverse reaction(s): None Anxiety disorder 01/19/2018 Return to work evaluation 11/26/2010 Overview (07/23/2017): Pain in joint, ankle and foot 02/14/2010 Overview (07/23/2017): Sprain and strain of carpometacarpal (joint) of hand 11/23/2008 Overview (07/23/2017): Sprain of back 12/21/2007 Overview (07/23/2017): Low back pain 12/07/2007 Overview (07/23/2017): Health examination of defined subpopulation 11/24 Overview (07/23/2017): Other examination of ears and hearing 10/06/2007 Overview (07/23/2017): Pain in joint, shoulder region 04/27/2007 Overview (07/23/2017): Immunizations Immunization Administration Dates Next Due COVID-19 (Pfizer Mccurtain 12 yrs+) (CVX-208) 021,05/25/2020 Covid-19 (Moderna Mccurtain, 12yrs+) (CVX-207) 2020 Tdap (ADACEL BOOSTRIX) (CVX-115) 04/07/2017 Social History Tobacco Use Types Packs/Day Years Used Date Smoking Tobacco: Former Cigarettes Q uit: 2019 Smokeless Tobacco: Never Tobacco Cessation:Counseling Given: Not Answered Alcohol Use Standard Drinks/Week Comments No 0 (1 standard drink = 0.6 oz pur e alcohol) Intimate Partner Violence Answer Date R ecorded Insults You Not on file 06/07/2020 Threatens You Not on file 06/07/2020 Screams at You Not on file 06/07/2020 Physically Hurt Not on file 06/07/2020 Intimate Partner Violence Score Not on file 06/07/2020 Alcohol Use Answer Date Recorded Alcohol Use Status No 10/01/2023 Depression Answer Date Recorded PHQ Total Score 0 10/01/2023 Stress Answer Date Recorded Stress in your Life Not on file 12/29/2023 Dealing with Stress 3 12/29/2023 Comments Unknown Sex and Gender Information Value Date Recorded Sex Assigned at Not on file Legal Sex Female 10:06 AM CDT Gender Identity Not on file Sexual Orientation Not on file Last Filed Vital Signs Vital Sign Reading Time Taken Comments Blood Pressure 116/82 01/19/2024 2:34 PM EST Pulse 73 12/23/2023 3:22 PM EDT Temperature 36.3 C (97.3 F) 01/19/2024 2:34 PM EST Respiratory Rate 16 01/19/2024 2:34 PM EST Oxygen Saturation 98% 01/19/2024 2:34 PM EST Inhaled Oxygen Concentration - - Weight 66 kg (145 lb 9.6 oz) 01/19/2024 2:34 PM EST Height 162.6 cm (5' 4 ) 01/19/2024 2:34 PM EST Body Mass Index 24.99 01/19/2024 2:34 PM EST Plan of Treatment Health Maintenance Due Date Last Done Comments Dental Cleaning/Exam 1960 HIV Screening 1960 Hepatitis C Screening 1960 Cervical Cancer Screening 1978 Annual Preventive Exam 1980 Hep B Infection Screening - Triple Screen 1980 Colorectal Cancer Screening 1992 Zoster Immunization (1 of 2) 2012 Breast Cancer Screening 12/06/2012 12/06/2010 Covid-19 Immunization ( season) 2023 01/25/2021, 06/15/2020, 05/25/2020 Influenza Immunization (#1) 2024 12/05/2022 Tetanus Diphtheria and Pertussis Immunization (2 - Td or Tdap) 04/07/2027 04/07/2017 HIB Immunization Aged Out No longer e ligible based on patient's age to complete this topic HPV Immunization Aged Out No longer e ligible based on patient's age to complete this topic Hepatitis A Immunization Aged Out No longer eligible based on patient's age to complete this topic Hepatitis B Immunization Aged Out No longer eligible based on patient's age to complete this topic Pneumococcal: Ped (0 to 5 Yrs) and At-Risk Member (6 to 64 Yrs) Aged Out No longer eligible b ased on patient's age to complete this topic Polio Immunization Aged Out No longer eligible based on patient's age to complete this topic Insurance LYNDA IN [place] 5 Care Teams Assurance Senior Manager Relationship Specialty Start Date End Date Silvino Greenberg MD [address] [facility] [address] PCP - General Family Medicine 06/08/20
--- OUTSIDE RECORDS SUMMARY | 2024-09-23 08:43 | XMS_ITS | Encounter Summary ---
Author Organization [facility] Address [address] [place] [address] Care Team Providers Care Pillowcase Maker Name Role Phone Silvino Greenberg MD Primary Care Provider Reason for Visit * Reason Comments Med Refill Encounter Details Date Type Department Care Team (Late st Contact Info) Description 11/18/2021 Refill [facility] [address] [place] [address] Donna Monroe MD [address] [facility] [address] [place] [address] Vaginal atrophy Social History Tobacco Use Types Packs/Day Years Used Date Smoking Tobacco: Former Smokeless Tobacco: Never Alcohol Use Standard Drinks/Week Comments Yes 0 (1 standard drink = 0.6 oz pur e alcohol) social Comments No Sex and Gender Information Value Date Recorded Sex Assigned at Not on file Legal Sex Female 12:14 PM EDT Gender Identity Not on file Sexual Orientation Not on file documented as of this encounter Plan of Treatment Not on file documented as of this encounter Visit Diagnoses Diagnosis Vaginal atrophy Postmenopausal atrophic vaginitis documented in this encounter Care Teams Pillowcase Maker Relationship Specialty Start Date End Date Silvino Greenberg MD [address] [facility] [address] [facility] [address] [place] [address] PCP - General Family Medicine 09/25/20 documented as of this encounter
--- OUTSIDE RECORDS SUMMARY | 2024-09-23 08:43 | XMS_ITS | Patient Health Record ---
Author Organization [facility] Address [address] [id number] Care Team Providers Care Welder Fitter Arc Name Role Phone Erich Greenberg Primary Care [...] call report- gallstones and gallbladder wall thickening Medications Medication SIG (Take, Route, Frequency, Duration) Notes Start Date End Date Status Zepbound 7.5 MG/0.5ML 0.5 mL Subcutaneou s; Duration: 30 day(s) Active Albuterol Sulfate HFA 108 (90 Base) MCG/ACT 2 inhalations Inhalation four times daily and q2h prn; Duration: 30 days 10/07/2022 Active traZODone HCl 150 MG TAKE 1 TABLET BY [facility] AT BEDTIME; Duration: 90 Active EQ Allergy Relief (Cetirizine) 10 MG 1 tablet Orally Once a day; Duration: 14 days Active Omeprazole 20 MG 1 cap(s) orally once a day; Duration: 14 days Active Immunizations Vaccine Route Administration Date Status Comme nts Fluzone PF Quad (6-35 months) Unknown 12/05/2022 Administered xFlu shot-36 months and older IM Intramuscular 01/23/2010 Administered Problems Problem Type SNOMED Code ICD Code Onset Dates Problem Status W/U Status Risk Notes Problem Migraine (07825703) Migraine, unspecified, without mention of intractable migraine (346.90) Active confirmed Problem Overactive bladder (187212709) Overactive bladder (596.51) Active confirmed Problem Gastroesophageal reflux disease (943386150) GERD (gastroesophag eal reflux disease) (K21.9) Active confirmed Problem Seasonal allergy (359868462) Seasonal allergies (J30.2) Active confirmed Problem Mixed anxiety and depressive disorder (305559566) Depression with anxiety (F41.8) Active confirmed Problem Acute stress disorder (54520862) Emotional crisis, acute reaction to stress (F43.0) Active confirmed Vital Signs Heart Rate 73 /min 12/09/2023 Blood pressure diastolic 72 mm Hg 12/09/2023 Height 66 in 12/09/2023 Blood pressure systolic 112 mm Hg 12/09/2023 Weight 161 lbs 12/09/2023 BMI 25.98 kg/m2 12/09/2023 Encounters Encounter Location Date Provider Diagnosis [facility] [address] [place], [place] [phone] 12/09/2023 R Keegan Greenberg RUQ abdominal pain R10.11 [facility] [address] [place], [place] [phone] 12/15/2023 R Keegan Greenberg [facility] [address] [place], [place] [id number] 12/16/2023 R Keegan Greenberg [facility] [address] [place], [place] [id number] 12/18/2023 R Keegan Yari [facility] [address] [place], [place] [phone] 09/14/2024 Erich Greenberg Assessments Encounter Date Diagnosis (ICD Code) Assessment Notes Treatment Notes Treatment Clinical Notes Section Notes 12/09/2023 RUQ abdominal pain (ICD-10 - R10.11) Plan Of Treatment Pending Test Test Name Order Date H-CMP 09/23/2024 Next Appt Details Provider Name:Erich Bashir, 09/23/2024 03:30:00 PM, [address], [place], [place], [id number], Insurance Providers Payer Name Payer Address Payer Phone Subscriber Number Group Number Insured Name Patient Relationship to Insured Coverage Start Date Coverage End Date LYNDA TAMAYO [address] [place] [address] [phone] [id number] Elena MENJIVAR Self - patient is the insured Medical (General) History Medical History History ICD Code OP Depression with anxiety Recurrent DVT 2014, [address] 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
--- OUTSIDE RECORDS SUMMARY | 2024-09-23 08:43 | XMS_ITS | Clinical Summary ---
Author Organization [facility] Address [address] [place] [address] Care Team Providers Care Associate Professor Of Radiology Name Role Phone Silvino Greenberg MD Primary Care Provider Allergies No known active allergies Medications traZODone (DESYREL) 150 MG tablet Take 1 tablet by mouth every night at bedtime. 1 Active cetirizine (zyrTEC) 10 MG tablet Take 1 tablet by mouth Daily. Active omeprazole (priLOSEC) 20 MG capsule 2 Active acyclovir (ZOVIRAX) 400 MG tabletIndications:H erpes simplex vulvovaginitis Take 1 tablet by mouth 3 (Three) Times a Day. Begin at onset of symptoms. 15 tablet 6 5 Active Prasterone (Intrarosa) 6.5 MG insertIndications:V aginal atrophy Insert 6.5 mg into the vagina Every Night. 28 each 11 5 Active Active Problems Problem Noted Date Diagnosed Date Family history of breast cancer 09/25/2020 Overview (09/25/2020): Mother with breast cancer diagnosed at 48 Herpes genitalis Family History Medical History Relation Name Comments Heart disease Brother Heart disease Father Breast cancer Mother Ramila Relation Name Status Comments Brother Father Mother Ramila Social History Tobacco Use Types Packs/Day Years Used Date Smoking Tobacco: Former Cigarettes 1 30 Electronic Cigarette Smokeless Tobacco: Never Tobacco Cessation:Counseling Given: Not Answered Alcohol Use Standard Drinks/Week Comments Yes 0 (1 standard drink = 0.6 oz pur e alcohol) social Abuse Screen Answer Date Recorded Feels Unsafe at Home or Work/School no 11/30/2023 Feels Threatened by Someone no 1007/2023 Does Anyone Try to Keep You From [...] Sign Reading Time Taken Comments Blood Pressure 112/70 04/12/2024 3:54 PM EST Pulse 73 11/30/2023 5:00 PM EDT Temperature 36.7 C (98 F) 11/30/2023 4:26 PM EDT Respiratory Rate 20 11/30/2023 4:26 PM EDT Oxygen Saturation 99% 11/30/2023 5:00 PM EDT Inhaled Oxygen Concentration - - Weight 66 kg (145 lb 9.6 oz) 04/12/2024 3:54 PM EST Height 162.6 cm (5' 4 ) 04/12/2024 3:54 PM EST Body Mass Index 24.99 04/12/2024 3:54 PM EST Plan of Treatment Health Maintenance Due Date Last Done Comments COLOGUARD 11/04/2007 COLON CANCER SCREENING 5 YEA R SIGMOIDOSCOPY 11/04/2007 CT COLONOGRAPHY 11/04/2007 FECAL OCCULT BLOOD TEST 11/04/2007 FIT Testing (1 year) 11/04/2007 Pneumococcal Vaccine 50+ (1 of 1 - PCV) 2012 ZOSTER VACCINE (1 of 2) 2012 MAMMOGRAM 03/07/2016 03/07/2014, 11/24, 12/06/2010 ANNUAL PHYSICAL 09/04/2020 HEPATITIS C SCREENING 09/04/2020 COVID-19 Vaccine (2023-2 5 season) 2023 01/25/2021, 06/15/2020, 05/25/2020 INFLUENZA VACCINE 11/24/2024 12/05/2022 Annual Gynecologic Pelvic an d Breast Exam 04/13/2025 04/12/2024 TDAP/TD VACCINES (2 - Td or Tdap) 04/07/2027 018 PAP SMEAR 04/12/2027 04/12/2024, 12/26, 01/07/2022, Additional history exists COLONOSCOPY 05/25/2029 05/26/2019 COLORECTAL CANCER SCREENING 05/25/2029 Procedures Procedure Name Priority Date/Time Associated Diagnosis Comments LIQUID-BASED PAP SMEAR WITH HPV GENOTYPING IF ASCUS, [facility] (JEANIE,COR,MAD) Routine 04/12/2024 4:41 PM EST Encounter for gynecological examination without abnormal finding from Last 3 Months or Most Recently Relevant to Health Maintenance Results * LIQUID-BASED PAP SMEAR WITH HPV GENOTYPING IF ASCUS (JEANIE,COR,MAD) (04/12/2024 4:41 PM EST) Reference Lab Report [facility] [address] [place] [address] or [phone] Silvino Agustin M.D., Metal Trimmer PATIENT NAME LABORATORY NO. [id number] ELENA RAMOS [id number] AGE SEX SSN CLIENT REF # [facility] 63 1960 F [id number] [address] REQUESTING Twan [place] [address] MAYRA BANEGAS DATE COLLECTED DATE RECEIVED DATE REPORTED 04/12/2024 04/13/2024 04/14/2024 ThinPrep Pap with Cytyc Imaging DIAGNOSIS: Negative for intraepithelial lesion or malignancy Multiple factors can influence accuracy of Pap tests; therefore, screening at regular intervals is necessary for early cancer detection. COMMENT: Benign cellular changes associated with atrophy are present. SPECIMEN ADEQUACY: SATISFACTORY FOR EVALUATION Transformation zone is present. SOURCE OF SPECIMEN: CERVICAL/ENDOCERV ICAL SLIDES: 1 CLINICAL HISTORY: Encounter for gynecological examination without abnormal finding Family history of breast cancer Vaginal atrophy Herpes simplex infection pf genitourinary system Herpes simplex vulvovaginitis Post menopausal OPEN END SPINNING OPERATOR: WILLAM GORDILLO (ASCP) CPT CODES: 34478 04/14/2024 10:51 AM EST [facility] ThinPrep Vial Collection / Unknown 04/12/2024 4:41 PM EST 04/12/2024 4:42 PM EST us Mayra Banegas MD PATHOLOGY/CYTOLOGY ORDERABLES nal Result [facility]
[address] [place] [address], [place] [phone] from Last 3 Months or Most Recently Relevant to Health Maintenance Insurance [facility] PPO Care Teams Associate Professor Of Radiology Relationship Specialty Start Date End Date Silvino Greenberg MD [address] [facility] [address] [facility] [address] [place] [address] PCP - General Family Medicine 09/25/20
[2024-09-23 09:12] LABS: Albumin Level 3.9 g/dl (3.5-5.0); Chloride 100 mmol/L (98-107); Potassium 4.2 mmoL/L (3.5-5.1); Sodium 134 mmol/L (136-145)
[2024-09-23 09:15] LABS: Alanine Aminotransferase 19 U/L (12-78); Albumin/Globulin Ratio 1.1 (1.1-1.8); Alkaline Phosphatase 97 U/L (38-126); Anion Gap 8.2 mEq/L (5-15); Aspartate Amino Transferase 32 U/L (14-36); Bilirubin,Total 0.4 mg/dl (0.2-1.3); Blood Urea Nitrogen 16 mg/dl (7-17); Calcium 9.9 mg/dl (8.4-10.2); Carbon Dioxide 30 mmol/L (22.0-30.0); Cholesterol 219 mg/dl (140-200); Creatinine,Serum 0.60 mg/dl (0.52-1.04); Estimated Glomerular Filt Rate 102 ml/min (>60); GFR (African American) 123 ML/MIN (>60); Globulin 3.4 g/dL (1.3-3.2); Glucose 93 mg/dl (74-100); Total Protein,Serum 7.3 g/dl (6.3-8.2); Triglycerides 47 mg/dl (30-150)
[2024-09-23 09:16] LABS: HDL Cholesterol 92 mg/dl (40-60)
--- NOTE | 2024-09-23 16:18 | XR_ITS ---
PROCEDURE INFORMATION: Exam: XR Right Hand Exam date and time: 09/23/2024 4:21 PM Age: 63 years old Clinical indication: Pain; Hand; Right; Additional info: Left hand pain TECHNIQUE: Imaging protocol: Radiologic exam of the right hand. Views: 1 or 2 views. COMPARISON: CR XR WRIST RT MIN 3V 09/23/2024 4:21 PM FINDINGS: Bones/joints: Normal. Soft tissues: Normal. IMPRESSION: No acute findings.
--- NOTE | 2024-09-23 16:19 | XR_ITS ---
PROCEDURE INFORMATION: Exam: XR Right Wrist Exam date and time: 09/23/2024 4:21 PM Age: 63 years old Clinical indication: Pain; Wrist; Right; Additional info: Pain in wrist TECHNIQUE: Imaging protocol: Radiologic exam of the right wrist. Views: 3 or more views. COMPARISON: CR XR WRIST RT MIN 3V 09/23/2024 4:21 PM FINDINGS: Bones/joints: Normal. Soft tissues: Normal. IMPRESSION: No acute findings.
== END 2024-09-23 23:59 | disposition home or self-care (01) ==
PROVIDERS: PCP Family Medicine; Visit Provider Family Medicine
DX: Z00.00 Encounter for general adult medical examination without abnormal findings (principal); M25.531 Pain in right wrist
CPT/HCPCS: 36415; 73110; 73120; 80053; 80061